=== PATIENT | male | born 1965 | race Caucasian/White ===

== ENCOUNTER 2021-01-19 06:59 | Day surgery (SDC) | payer OTHER ==
[~2021-01-19] VITALS: Ht 182.9 cm; Wt 85.0 kg
[~2021-01-19 06:59] MED LIST: MIRALAX119 GM
--- NOTE | 2021-01-19 17:18 | OR ---
[facility] [address] [place], [place] [address] Signed DATE OF OPERATION: 01/19/2021 SURGEON: Akash Frey MD PREOPERATIVE DIAGNOSES: 1. Screening. 2. Chronic diarrhea. 3. Chronic intermittent rectal bleeding. 4. Chronic intermittent posterior midline anal fissure. 5. History of lateral internal anal sphincterotomy in the . POSTOPERATIVE DIAGNOSES: 1. Moderately poor bowel prep. 2. Unremarkable colonoscopy. PROCEDURE: Colonoscopy without biopsy. ESTIMATED BLOOD LOSS: None. INDICATIONS: Maurizio is a 55-year-old gentleman, asked to see me for a screening colonoscopy. He remembers clear back to the having trouble with diarrhea and rectal bleeding. He describes three separate colonoscopies. He describes his posterior midline anal fissure. He said that despite having a colorectal surgeon do his lateral sphincterotomy, it does return from time to time. Consequently, he takes MiraLax on a daily basis. There is no family history of colon cancer, polyps, or inflammatory bowel disease. 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 We have come to the COVID pandemic this last year and he said he really has not had the opportunity to meet anyone here in town. Consequently, he really did not have anyone to take him home. In that regard, he declined IV sedation today. He knows there is risk to this procedure including, but not limited to gas bloating, crampy abdominal pain, bleeding, perforation requiring surgery, and missed diagnosis. He had expressed understanding and wished to proceed. PROCEDURE NOTE: Maurizio was taken into our endoscopy suite and placed in the left lateral decubitus position. A digital rectal exam was performed and he has very good sphincter tone. I did not specifically feel a sphincterotomy defect. He said he can always feel some pain Electronically Signed By: AKASH FREY MD 01/19/21 6198 PATIENT NAME: MAURIZIO FRANKLIN OPERATIVE REPORT DATE OF : 65 REPORT #: [id number] PHYSICIAN: AKASH FREY MD PCP: MIGDALIA FELIX MD REPORT IS CONFIDENTIAL AND NOT TO BE RELEASED WITHOUT AUTHORIZATION [facility] [address] [place], [place] [address] Signed in the posterior midline. I really could get a good look at that today. I did not specifically feel any abnormal in the posterior midline. There were no masses. Prostate was unremarkable. The adult colonoscope was introduced and we advanced the camera very slowly under direct visualization. We took multiple breaks and he was able to catch his breath and we were able to advance the scope. He did surprisingly well. He did have several areas of moderate thick brown particulate stool matter. It was simply too much to suction through the scope. Unfortunately, his prep was slightly below average. In that regard, we probably saw 85-90% of the mucosa. We slowly, but surely made our way right into the cecum itself. We could easily see the appendiceal orifice and the ileocecal valve. We took several pictures throughout for photodocumentation. The scope was then slowly withdrawn. We saw no pathology throughout his entire colon or rectum. We did retroflex the scope in the rectum and we had a moderate view of his anus. No specific findings in that regard. After this, the gas was suctioned out, the colonoscope removed. Maurizio tolerated the colonoscopy quite well without medications at his request. He also requests to come see me in the office once again to review the anal fissure. RECOMMENDATIONS: I will see Maurizio back in my office in next week or two to review the treatment for anal fissures, both medical and surgical. He might consider a repeat colonoscopy somewhere between five years and less than five years with a double bowel prep. I did mention to him the need for double bowel prep in the future. He had expressed understanding and agrees to above plan. Akash Frey MD [facility] [place] /[id number] cc: Dr. Migdalia Frey MD Copies: AKASH FREY MD Electronically Signed By: AKASH FREY MD 01/19/21 1718 PATIENT NAME: MAURIZIO FRANKLIN OPERATIVE REPORT DATE OF : 65 REPORT #: [id number] PHYSICIAN: AKASH FREY MD PCP: MIGDALIA FELIX MD REPORT IS CONFIDENTIAL AND NOT TO BE RELEASED WITHOUT AUTHORIZATION [address] [address] Signed ~ Electronically Signed By: AKASH FREY MD 01/19/21 1718 PATIENT NAME: MAURIZIO FRANKLIN OPERATIVE REPORT DATE OF : 65 REPORT #: [id number] PHYSICIAN: AKASH FREY MD PCP: MIGDALIA FELIX MD REPORT IS CONFIDENTIAL AND NOT TO BE RELEASED WITHOUT AUTHORIZATION
== END 2021-01-19 09:05 | disposition home or self-care (01) ==
LOC: DS 06:59 → OPS 06:59 → DS 08:15 → OPS 09:05 → DS 02-09 06:45
PROVIDERS: ATTEND Colon & Rectal Surgery
PROC: 0DJD8ZZ Inspection of Lower Intestinal Tract, Via Natural or Artificial Opening Endoscopic (ICD-10-PCS; principal; 2021-01-19 08:15)
DX: Z12.11 Encounter for screening for malignant neoplasm of colon (principal); K60.2 Anal fissure, unspecified; K52.9 Noninfective gastroenteritis and colitis, unspecified
CPT/HCPCS: J7121